=== PATIENT | male | born 1960 | race Caucasian/White ===

== ENCOUNTER 2017-03-06 19:54 | Emergency (ER) | payer BC, OTHER ==
[2017-03-06 20:09] VITALS: TEMP 98.3; O2SAT 94
[2017-03-06] MEDS ORDERED: LEVETIRACETAM 250 MG TAB ONE (20:33)
[2017-03-06 20:50] VITALS: BP 127/94; PULSE 94; RESP 13
[2017-03-06] MEDS ORDERED: LEVETIRACETAM 250 MG TAB PO SCH (21:00)
== END 2017-03-06 20:46 | disposition home or self-care (01) | DRG 101 ==
LOC: ED 19:54
DX: R56.9 Unspecified convulsions (principal); S00.572A Other superficial bite of oral cavity, initial encounter
CPT/HCPCS: 99283

== ENCOUNTER 2018-06-30 18:03 | Emergency (ER) | payer OTHER ==
[2018-06-30 18:25] LABS: BASOPHILS % (AUTO) 2 % (0-3); EOSINOPHILS % (AUTO) 1 % (0-9); HEMATOCRIT 51 % (39-53); HEMOGLOBIN 15.9 gm/dl (13.5-17.7); LYMPHOCYTES % (AUTO) 27.6 % (10-50); MEAN CORPUSCULAR HEMOGLOBIN 26.7 pg (27.0-32.0); MEAN CORPUSCULAR HGB CONC 31.4 gm/dl (32.0-36.0); MEAN CORPUSCULAR VOLUME 85 fL (80-100); MONOCYTES % (AUTO) 12.8 % (0-12); NEUTROPHILS % (AUTO) 56.9 % (37-80)
[2018-06-30 18:41] LABS: ALBUMIN 3.7 gm/dl (3.4-5.0); BILIRUBIN,TOTAL 0.4 mg/dl (0.2-1.0); CALCIUM 8.6 mg/dl (8.5-10.1); CARBON DIOXIDE 26.8 mEq/L (21-32); CREATININE 1.2 mg/dl (0.80-1.30); TOTAL PROTEIN 7.5 gm/dl (6.4-8.2)
[2018-06-30 18:56] VITALS: RESP 20
[2018-06-30 19:31] LABS: APPEARANCE,URINE Clear; BILIRUBIN,URINE NEGATIVE (NEGATIVE); COLOR,URINE Yellow; GLUCOSE, URINE (UA) NEGATIVE (NEGATIVE); KETONES,URINE NEGATIVE (NEGATIVE); LEUKOCYTE ESTERASE ,URINE NEGATIVE (NEGATIVE); NITRATE,URINE NEGATIVE (NEGATIVE); OCCULT BLOOD,URINE NEGATIVE (NEG-TRACE); UROBILINOGEN,URINE 0.2 (0.2-1.0 EU)
[2018-06-30 19:44] LABS: BACTERIA NEGATIVE (< 1+); CRYSTALS NEGATIVE (0-3 AVE/HPF); EPITHELIAL CELLS 0-1 (SQUAMOUS); RBC,URINE NEG (0-3AV/HPF); WBC,URINE NEG (0-5AV/HPF)
[2018-06-30 20:34] VITALS: TEMP 98
[2018-06-30 20:36] VITALS: BP 149/91; PULSE 91; O2SAT 94
== END 2018-06-30 19:51 | disposition home or self-care (01) | DRG 101 ==
LOC: ED 18:03
DX: G40.909 Epilepsy, unspecified, not intractable, without status epilepticus (principal)
CPT/HCPCS: 36415; 80053; 81001; 85025; 99283; 99284